=== PATIENT | female | born 1985 | race Caucasian/White ===

== ENCOUNTER 2018-07-05 18:09 | Emergency (ER) | payer SELFPAY ==
[2018-07-05] MEDS ORDERED: Sodium Chloride 0.9% 1,000 ML IV ONE (19:21)
--- NOTE | 2018-07-05 19:30 | C.PDOC ---
History Of Present Illness 33 year old female , 7.5 weeks , presents with right adnexal pain since last night. Patient found out she was last week and is due to see her OB next week. Currently she is pain free and symptom free, does not want any pain medication at this time. Denies vaginal bleeding. Time Seen by Provider: 07/05/18 19:06 Chief Complaint (Nursing): Female Genitourinary History Per: Patient History/Exam Limitations: no limitations Onset/Duration Of Symptoms: Days Current Symptoms Are (Timing): Gone Quality Of Discomfort: Unable To Describe Associated Symptoms: denies: Fever, Chills, Nausea, Vomiting Alleviating Factors: None Recent travel outside of the [place]: No Abnormal Vaginal Bleeding: No Past Medical History Reviewed: Historical Data, Nursing Documentation, Vital Signs Vital Signs: Last Vital Signs Temp 97.6 F 07/05/18 18:13 Pulse 89 07/05/18 18:13 Resp 20 07/05/18 18:13 BP 145/88 07/05/18 18:13 Pulse Ox 100 07/05/18 18:13 - Medical History PMH: Denies: Chronic Kidney Disease - [facility] Procedures OTHER SKIN & SUBQ I D (06/13/13) TETANUS TOXOID ADMINIST (06/13/13) Family History: States: No Known Family Hx - Social History Hx Tobacco Use: No Hx Alcohol Use: Yes Hx Substance Use: Yes - Immunization History Hx Tetanus Toxoid Vaccination: Yes Hx Influenza Vaccination: No Hx Pneumococcal Vaccination: No Review Of Systems Constitutional: Negative for: Fever, Chills Cardiovascular: Negative for: Chest Pain, Palpitations Respiratory: Negative for: Cough, Shortness of Breath Gastrointestinal: Negative for: Nausea, Vomiting Genitourinary: Negative for: Dysuria, Hematuria Neurological: Negative for: Weakness, Numbness Physical Exam - Physical Exam Appears: Non-toxic Skin: Normal Color, Warm, Dry Head: Atraumatic, Normacephalic Eye(s): bilateral: Normal Inspection Oral Mucosa: Moist Chest: Symmetrical, No Tenderness Cardiovascular: Rhythm Regular Respiratory: Normal Breath Sounds, No Rales, No Rhonchi, No Wheezing Gastrointestinal/Abdominal: Soft, No Tenderness Back: No CVA Tenderness Neurological/Psych: Oriented x3, Normal Speech ED Course And Treatment - Laboratory Results Result Diagrams: 07/05/18 20:15 07/05/18 20:15 O2 Sat by Pulse Oximetry: 100 (room air) Pulse Ox Interpretation: Normal Against Medical Advice - AMA Patient Left Against Medical Advice: The patient declines admission to the hospital and wishes to leave the Emergency Department. This action is against my medical advice. This decision was made with informed refusal. The patient was told that admission to the hospital is necessary. Explanation of the reasons why were discussed. The risks of leaving were explained to the patient and include, but are not limited to, worsening of known or currently unknown conditions, permanent disability and from undiagnosed or untreated conditions. The patient has the capacity to make this informed decision and understands my explanation of the current medical problem and risks of leaving. The patient voluntarily accepts these risks and signed an AMA form documenting our conversation. The patient was given the opportunity to ask questions and reconsider. The patient was encouraged to return to the Emergency Department at any time for further care. Medical Decision Making Medical Decision Making: ro ab vs ectopic - labs imaging pneding Blood work, urinalysis, and transvaginal US ordered. IV fluids administered. upon reassessment now with rlq ttp. states pain mild. requested pt be obs for possible mri. she declines states will return with worsening. understands risks signs ama. Disposition - Disposition Referrals: [facility] [Outside] [facility] [Outside] [facility] [Outside] [facility] [Outside] Disposition: HOME/ ROUTINE Disposition Time: 22:00 Condition: UNKNOWN Additional Instructions: return to er with worsening symptoms or concerns. please see your obgyn. Instructions: Threatened Miscarriage, Acute Abdomen (Belly Pain), Leaving Against Medical Advice Forms: [employer] (U[place]ayan) - Clinical Impression Clinical Impression: Abdominal pain, Threatened miscarriage, Left against medical advice - Scribe Statement The provider has reviewed the documentation as recorded by the Scribe Alcides Werner All medical record entries made by the Scribe were at my direction and personsallie espinozay dictated by me. I have reviewed the chart and agree that the record accurately reflects my personal performance of the history, physical exam, medical decision making, and the department course for this patient. I have also personally directed, reviewed, and agree with the discharge instructions and disposition.
[2018-07-05] MEDS ORDERED: Sodium Chloride 0.9% 1,000 ML ONE (20:01)
[2018-07-05] MEDS ORDERED: Iohexol 240 (50 ml) ONE (20:04)
[2018-07-05 20:05] LABS: HCG,QUALITATIVE URINE POSITIVE (NEGATIVE)
[2018-07-05 20:06] LABS: SQUAMOUS EPITHIAL 1 /hpf (0-5); URINE BILIRUBIN NEGATIVE (NEGATIVE); URINE BLOOD NEGATIVE (NEGATIVE); URINE CLARITY Clear (Clear); URINE COLOR Yellow (YELLOW); URINE GLUCOSE (UA) NORMAL (Normal); URINE LEUKOCYTE ESTERASE NEG Leu/uL (Negative); URINE PROTEIN NEGATIVE (NEGATIVE); URINE UROBILINOGEN NORMAL mg/dL (0.2-1.0)
[2018-07-05 20:20] LABS: BASO # 0.1 K/uL (0.0-0.2); BASO % 0.7 % (0.0-2.0); EOS # 0.1 K/uL (0.0-0.7); EOS % 0.7 % (0.0-4.0); LYMPH # 3.5 K/uL (1.0-4.3); LYMPH % 30.2 % (20.0-40.0); MEAN CORPUSCULAR HEMOGLOBIN 27.5 pg (27.0-31.0); MEAN PLATELET VOLUME 8.1 fL (7.2-11.7); MONO # 0.6 K/uL (0.0-0.8); MONO % 5.4 % (0.0-10.0); NEUT # 7.3 K/uL (1.8-7.0); RBC 4.73 Mil/uL (3.80-5.20); RED CELL DISTRIBUTION WIDTH 12.4 % (11.5-14.5); WHITE BLOOD COUNT 11.5 K/uL (4.8-10.8)
[2018-07-05 20:29] LABS: INR 1.1; PROTHROMBIN TIME 11.7 SECONDS (9.7-12.2)
[2018-07-05 20:35] LABS: ALB/GLOB RATIO 1.6 (1.0-2.1); ALBUMIN 4.4 g/dL (3.5-5.0); ALT/SGPT 18 U/L (9-52); AST/SGOT 21 U/L (14-36); BLOOD UREA NITROGEN 6 mg/dL (7-17); CALCIUM 9.4 mg/dl (8.6-10.4); GFR NON-AFRICAN AMERICAN > 60
[2018-07-05 22:45] VITALS: BP 112/72; PULSE 100; RESP 16; TEMP 97.8
[2018-07-06 00:58] VITALS: O2SAT 100
--- NOTE | 2018-07-06 10:25 | US ---
Date of service: 07/05/2018 Indication: abd pain/ Comparison: Transvaginal pelvic ultrasound performed 04/20/15 Technique: Transabdominal pelvic ultrasound. Findings: The uterus measures approximately 9.0 x 4.7 x 4.6 cm. Anteverted. Cervix length measures approximately 3.2 cm. There is a single intrauterine fetus present. 4 mm yolk sac. The gestational sac measures 2.0 cm and is compatible with a gestational age of 6 weeks 4 days. The crown-rump length measures 0.7 cm and is compatible with a gestational age of 6 weeks 4 days. There is heart motion which measured 119 BPM. The right ovary measures 2.8 x 2.3 x 3.6 cm. The left ovary measures 5.0 x 3.6 x 4.4 cm. Blood flow was demonstrated to both ovaries. Impression: Live single intrauterine with estimated gestational age 6 weeks 4 days. heart rate 119 bpm. Advise an anomaly screen at 16-18 weeks gestational age Preliminary impression was provided by [employer].
== END 2018-07-05 22:45 | disposition home or self-care (01) ==
LOC: C.ER 18:09
DX: O20.0 Threatened abortion (principal); Z3A.01 Less than 8 weeks gestation of pregnancy; R10.9 Unspecified abdominal pain

== ENCOUNTER 2018-07-20 04:12 | Emergency (ER) | payer MEDICAID ==
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
[2018-07-20 07:34] VITALS: RESP 17
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
[2018-07-20 10:02] VITALS: BP 115/69; PULSE 85; TEMP 98.6; O2SAT 100
== END 2018-07-20 10:02 | disposition home or self-care (01) ==
LOC: C.ER 04:12
DX: O26.891 Other specified pregnancy related conditions, first trimester (principal); R10.2 Pelvic and perineal pain; Z3A.08 8 weeks gestation of pregnancy; Y04.0XXA Assault by unarmed brawl or fight, initial encounter